=== PATIENT | female | born 1980 | race Hispanic/Latino ===

== ENCOUNTER 2022-04-13 13:25 | Emergency (ER) | payer SELFPAY ==
[2022-04-13 16:08] VITALS: BP 109/61
[2022-04-13 16:45] LABS: Basophils # (Auto) 0.1 K/mm3 (0.0-0.1); Basophils % (Auto) 0.8 % (0.0-1.8); Eosinophils # (Auto) 0.1 K/mm3 (0.0-0.4); Eosinophils % (Auto) 1.3 % (0.0-4.3); Hematocrit 42.4 % (30.3-42.9); Hemoglobin 14.3 gm/dl (10.1-14.3); Lymphocytes # (Auto) 2.3 K/mm3 (1.2-5.4); Lymphocytes % (Auto) 23.9 % (13.4-35.0); Mean Corpuscular HGB Conc 34 % (30-34); Mean Corpuscular Volume 90 fl (79-97); Monocytes # (Auto) 0.6 K/mm3 (0.0-0.8); Monocytes % (Auto) 5.9 % (0.0-7.3); Platelet Count 240 K/mm3 (140-440); Red Cell Distribution Width 14.8 % (13.2-15.2)
[2022-04-13 16:52] LABS: Bilirubin,Urine NEG (Negative); Blood,Urine LG (Negative); Color,Urine Amber (Yellow); Urobilinogen,Urine < 2.0 mg/dL (<2.0)
[2022-04-13 17:05] LABS: Alanine Aminotransferase 12 units/L (7-56); Albumin 4.4 g/dL (3.9-5); BUN/Creatinine Ratio 23; Blood Urea Nitrogen 14 mg/dL (7-17); Calcium 9.1 mg/dL (8.4-10.2); Hemolysis Index 6
[2022-04-13 17:05] LABS: Calcium Oxalate Crystals,Urine 3+; Mucus,Urine 3+ /HPF
[2022-04-13 17:09] LABS: RBC,Urine > 182.0 /HPF (0.0-6.0)
[2022-04-13 17:10] LABS: WBC,Urine < 1.0 /HPF (0.0-6.0)
--- NOTE | 2022-04-13 20:53 | Emergency Department Report ---
ED Abdominal Pain HPI - General Chief Complaint: Abdominal Pain Stated Complaint: AB PAIN/SHARP PAIN IN CHEST Time Seen by Provider: 04/13/22 20:38 Source: patient Mode of arrival: Ambulatory Limitations: No Limitations - History of Present Illness Initial Comments: 42-year-old female who presents with intermittent yellowish diarrhea that is been going on for the last 1 months progressively getting worse the last few days. Patient reported that she was seen in another emergency room and was told that she has a spot in her liver and was recommended to follow-up with a chlorine cell tender. Patient said because of insurance she has not been able to follow-up with gastroenterology and was told to return to emergency room if symptoms worsen. Patient denies any chance of being . Patient denies any vaginal bleeding. Patient also denies any nausea or vomiting. She however rated the diffuse abdominal pain as 7/10 in intensity. Pain is worse on the left upper abdomen. Patient reports that she was also told that she had bronchitis and now had cough and wheezing for the same time. She continues to smoke about half a pack a day. No other modifying or associated factors reported. MD Complaint: abdominal pain Severity scale (0 -10): 8 - Related Data Previous Rx's Medication Instructions Recorded Last Taken Type Ciprofloxacin HCl [Cipro] 500 mg PO Q12H #20 tab 02/11/15 Unknown Rx HYDROcodone/ACETAMINOPHEN [Mingo 1 each PO Q6HR #20 tablet 02/11/15 Unknown Rx 7.5-325 mg TAB] Ibuprofen [Motrin] 600 mg PO Q8H PRN #50 tablet 02/11/15 Unknown Rx Promethazine [Phenergan] 25 mg PO Q6H PRN #25 tablet 02/11/15 Unknown Rx HYDROcodone/APAP 10-325 [Mingo 1 each PO Q8HR PRN #15 tablet 08/06/15 Unknown Rx 10/325] Nitrofurantoin Kemper/M-Cryst 100 mg PO Q12HR #14 capsule 08/06/15 Unknown Rx [Macrobid CAP] Allergies Allergy/AdvReac Type Severity Reaction Status Date / Time No Known Allergies Allergy Unverified 03/12/16 17:26 ED Review of Systems ROS: Stated complaint: AB PAIN/SHARP PAIN IN CHEST Other details as noted in HPI Comment: All other systems reviewed and negative Gastrointestinal: abdominal pain, diarrhea. denies: nausea, vomiting, constipation ED Past Medical Hx - Past Medical History Previous Medical History?: Yes Additional medical history: gall bladder problems, "spot on her liver" - Surgical History Past Surgical History?: Yes Hx Cholecystectomy: Yes Additional Surgical History: tubal - Social History Smoking Status: Current Every Day Smoker Substance Use Type: None - Medications Home Medications: Home Medications Medication Instructions Recorded Confirmed Last Taken Type Ciprofloxacin HCl [Cipro] 500 mg PO Q12H #20 tab 02/11/15 Unknown Rx HYDROcodone/ACETAMINOPHEN [Mingo 1 each PO Q6HR #20 tablet 02/11/15 Unknown Rx 7.5-325 mg TAB] Ibuprofen [Motrin] 600 mg PO Q8H PRN #50 tablet 02/11/15 Unknown Rx Promethazine [Phenergan] 25 mg PO Q6H PRN #25 tablet 02/11/15 Unknown Rx HYDROcodone/APAP 10-325 [Mingo 1 each PO Q8HR PRN #15 tablet 08/06/15 Unknown Rx 10/325] Nitrofurantoin Kemper/M-Cryst 100 mg PO Q12HR #14 capsule 08/06/15 Unknown Rx [Macrobid CAP] ED Physical Exam - General Limitations: No Limitations General appearance: alert, in no apparent distress - Head Head exam: Present: normal inspection - Eye Eye exam: Present: normal appearance - ENT ENT exam: Present: normal exam, normal orophraynx, mucous membranes moist - Neck Neck exam: Present: normal inspection, full ROM. Absent: tenderness - Respiratory Respiratory exam: Present: normal lung sounds bilaterally. Absent: respiratory distress, accessory muscle use - Cardiovascular Cardiovascular Exam: Present: regular rate, normal rhythm, normal heart sounds - GI/Abdominal GI/Abdominal exam: Present: soft, tenderness (Noted with tenderness to the left upper abdomen), normal bowel sounds. Absent: distended - Extremities Exam Extremities exam: Present: normal inspection, full ROM, normal capillary refill. Absent: tenderness - Back Exam Back exam: Present: normal inspection, full ROM. Absent: tenderness, CVA tenderness (R), CVA tenderness (L) - Neurological Exam Neurological exam: Present: alert, oriented X3 - Psychiatric Psychiatric exam: Present: normal affect, normal mood - Skin Skin exam: Present: warm, normal color ED Course Vital Signs 04/13/22 16:03 Temperature 98.8 F Pulse Rate 88 Respiratory 20 Rate Blood Pressure 109/61 [Right] O2 Sat by Pulse 98 Oximetry - Reevaluation(s) Reevaluation #1: 04/13/22 20:53 here with abdominal pain and intermittent diarrhea-- this is could be any inflammatory changes such as IBS, Crohn's or Ulcerative Colitis-- but not rule out pancreatitis, gastritis or duodenitis--to rule those out we will go ahead and order routine acute abdomen such as CBC, CMP, urinalysis, lipase, and get a CT scan of the abdomen/pelvic for further evaluation and treatment. Reevaluation #2: 04/13/22 23:44 pt labs reviewed to be totally within normal range-- I was told that patient eloped while waiting for her serum hCG before a CT abd/pel could be done. ED Medical Decision Making - Lab Data Result diagrams: 04/13/22 16:27 04/13/22 16:27 Critical care attestation.: If time is entered above; I have spent that time in minutes in the direct care of this critically ill patient, excluding procedure time. ED Disposition Clinical Impression: Abdominal pain Qualifiers: Abdominal location: left upper quadrant Qualified Code(s): R10.12 - Left upper quadrant pain Diarrhea Qualifiers: Diarrhea type: unspecified type Qualified Code(s): R19.7 - Diarrhea, unspecified Disposition: 07 LEFT AWOL/ELOPED Is pt being admited?: No Does the pt Need Aspirin: No Condition: Stable Instructions: Abdominal Pain (ED) Referrals: JING DOCKERY MD [Primary Care Provider] - 3-5 Days Time of Disposition: 23:45
[2022-04-13] MEDS ORDERED: methylPREDNISolone Sod Succinate 125 MG/2 ML INJ IV ONE (21:04)
[2022-04-13] MEDS ORDERED: ONDANSETRON 4 MG/2 ML INJ IV ONE (21:06)
[2022-04-13] MEDS ORDERED: fentaNYL 100 MCG/2 ML INJ IV ONE (21:06)
== END 2022-04-14 07:54 | disposition left against medical advice (07) ==
LOC: ED 13:25
DX: R10.9 Unspecified abdominal pain (principal); R07.9 Chest pain, unspecified
CPT/HCPCS: 36415; 80053; 81001; 83690; 84484; 84703; 85025; 99283; J2405; J2930; J3010